=== PATIENT | male | born 1955 | race Caucasian/White ===

== ENCOUNTER 2022-07-10 14:07 | Emergency (ER) | payer MEDICARE, SELFPAY ==
[2022-07-10 14:19] VITALS: BP 148/87; PULSE 58; RESP 14; TEMP 36.6; O2SAT 98; BMI 25.8
--- NOTE | 2022-07-10 14:25 | DI.CT.S_ITS ---
PROCEDURE: CT KIDNEY URETER BLADDER (KUB) INDICATIONS: L flank pain. Hx kidney stones TECHNIQUE: Axial sections were acquired from the lung bases to the pubic symphysis. Coronal and sagittal reformats were performed. For radiation dose reduction, the following was used: automated exposure control, adjustment of mA and/or kV according to patient size. COMPARISON: None. FINDINGS: Image quality: Excellent. Lung bases: Unremarkable. Heart: No significant findings. URINARY: Right Kidney: 2-3 mm nonobstructing stones are seen scattered in right renal parenchyma. No hydronephrosis. No perinephric fat stranding. Right Ureter: No hydroureter. Left Kidney: There is moderate left-sided hydronephrosis and mild left perinephric fat stranding. 1-2 mm nonobstructing left renal calculi are seen. Left Ureter: Ucql-od-ygyehrzh left-sided hydroureter is seen extending to the level just proximal to left UVJ. A 3 mm stone is seen in distal left ureter just proximal to left UVJ. Bladder: Normal wall thickness. No stones. Enlarged prostate gland with mass effect on floor of urinary bladder is seen. ABDOMEN: Liver: Unremarkable. Gallbladder: Unremarkable. Biliary ducts: Unremarkable. Pancreas: Unremarkable. Spleen: Unremarkable. Adrenal Glands: Unremarkable. Stomach and Bowel: Stomach, small bowel loops, and colon are unremarkable. Mild fecal stasis in the colon is seen. Peritoneum: No abnormal intraperitoneal fluid. No free air. Ventral Wall: No hernia. Abdominal Nodes: No enlarged retroperitoneal or mesenteric lymph nodes. Vessels: Aorta and inferior vena cava are normal in size. PELVIS: Pelvic Organs: Unremarkable. Pelvic Nodes: Unremarkable. Miscellaneous: Bilateral inguinal hernia are seen containing fat only. Bones: No suspicious bony lesion. No acute vertebral body compression fracture. Degenerative disc disease throughout lower thoracic and lumbar spine is seen. IMPRESSION: 1. 3 mm left distal ureteral stone just proximal to left UVJ with mild to moderate left-sided hydronephrosis and hydroureter. 2. Bilateral nonobstructing renal calculi. No right-sided hydronephrosis or hydroureter. No gross abnormality is seen in partially distended urinary bladder. Enlarged prostate gland with mass effect on floor of urinary bladder. 3. No bowel obstruction or abnormal bowel wall thickening. No free fluid or free air. 4. Bilateral inguinal hernia containing fat only. Dictated by: Renato Carnes M.D. on 07/10/2022 at 15:15 Approved by: Renato Carnes M.D. on 07/10/2022 at 15:18
[2022-07-10] MEDS: KETOROLAC 30 MG/ML VIAL 15 MG IV (15:04)
[2022-07-10 15:06] LABS: Add Manual Diff / Slide Review NO; Basophils Absolute Auto 100 /uL (0-100); Eosinophils Absolute Auto 300 /uL (0-450); Eosinophils Percent Auto 3.5 % (2-4); Hematocrit 43.7 % (41-53); Hemoglobin 14.6 g/dL (13.5-17.5); Lymphocytes Absolute Auto 1800 /uL (1100-4500); Lymphocytes Percent Auto 24.5 % (25-40); Mean Corpuscular HGB Conc 33.5 % (30-36); Mean Corpuscular Hemoglobin 29.2 PG (26-34); Mean Corpuscular Volume 87.1 fL (80-100); Monocytes Absolute Auto 700 /uL (0-900); Monocytes Percent Auto 9.2 % (3-14); Neutrophils Absolute Auto 4500 /uL (1500-7000); Neutrophils Percent Auto 61.8 % (50-75); Platelet Count 186 X10^3/uL (150-400); Red Blood Cell Count 5.02 X10^6/uL (4.5-5.9); Red Cell Distribution Width 12.8 % (11.6-14.8); White Blood Cell Count 7.3 X10^3/uL (4.5-11.0)
--- NOTE | 2022-07-10 15:10 | ED.MALEGU ---
HPI - Male Genitourinary General Chief complaint: Urogenital-Male Stated complaint: Pain lower back/hx of kidney stones Time Seen by Provider: 07/10/22 15:04 Source: patient Mode of arrival: Ambulatory History of Present Illness HPI Narrative: Patient is a 67-year-old male with history of hyperlipidemia, kidney stones presenting with left-sided flank pain. He said it started abruptly this morning around 6:00 a.m.. It is radiating around to his abdomen. He says this feels similar to his previous kidney stone. He denies painful or frequent urination. He took ibuprofen early this morning. He has some chronic ongoing back pain which seems unrelated he says today was definitely left flank pain. Related Data Home Medications Medication Instructions Recorded Confirmed rosuvastatin 40 mg tablet 40 mg PO DAILY 06/13/22 06/13/22 sertraline 100 mg tablet (Zoloft) 100 mg PO DAILY 06/13/22 06/13/22 Previous Rx's Medication Instructions Recorded hydrocodone 5 mg-acetaminophen 325 1 tab PO Q6H PRN pain #10 tabs 07/10/22 mg tablet Allergies Allergy/AdvReac Type Severity Reaction Status Date / Time No Known Drug Allergies Allergy Verified 07/10/22 14:23 Review of Systems Review of Systems Narrative: GENERAL: Denies chills,fever HEENT: Denies throat pain RESPIRATORY: Denies dyspnea, cough, wheezing CARDIOVASCULAR: Denies chest pain, palpitations GASTROINTESTINAL: Denies nausea, vomiting : See HPI MUSCULOSKELETAL: Denies extremity pain, injury SKIN: No rash, no laceration, no pruritus NEUROLOGIC: Denies weakness, dizziness, headache, numbness 8 point review of systems is negative except for those stated above and HPI Patient History Social History Smoking Status: Never smoker Smoking Status: Never smoker alcohol intake frequency: a few times a month Substance Use Type: marijuana Exam Initial Vital Signs Initial Vital Signs: Vital Signs Temperature 97.9 F 07/10/22 14:19 Pulse Rate 58 L 07/10/22 14:19 Respiratory Rate 14 07/10/22 14:19 Blood Pressure 148/87 H 07/10/22 14:19 Pulse Oximetry 98 07/10/22 14:19 Oxygen Delivery Method 07/10/22 14:19 GENERAL: Alert pleasant 67-year-old male mom and in no acute distress. HEENT: Head atraumatic,EOMI, pupils reactive, face symmetric, moist mucous membranes CARDIOVASCULAR: Regular rate and rhythm without murmurs, rubs or gallops. RESPIRATORY: Breath sounds equal bilaterally, no wheezes rales or rhonchi. ABDOMEN: Soft, nontender. Normoactive bowel sounds all 4 quadrants. No guarding or rebound. : Left CVA tenderness EXTREMITIES: Normal range of motion, no clubbing or edema. Neurovascularly intact NEUROLOGICAL: Alert and oriented x4.Normal gait and speech. SKIN: Warm, dry, no laceration, no petechiae, no rashes or lesions. Course Orders Ordered: Discontinued Medications Ketorolac Tromethamine (Ketorolac 30 Mg/Ml Vial) 15 mg IV NOW ONE Stop: 07/10/22 15:01 Last Admin: 07/10/22 15:04 Dose: 15 mg Documented By: [place] Vital Signs Vital signs: Vital Signs - 8 hr 07/10/22 14:19 Temperature 97.9 F Pulse Rate 58 L Respiratory Rate 14 Blood Pressure 148/87 H Pulse Oximetry 98 Oxygen Delivery Method Room Air MDM - Male Genitourinary Lab Data Result diagrams: 07/10/22 14:50 07/10/22 14:50 Labs: Lab Results 07/10/22 07/10/22 07/10/22 Range/Units 14:44 14:50 14:50 WBC 7.3 (4.5-11.0) X10^3/uL RBC 5.02 (4.5-5.9) X10^6/uL Hgb 14.6 (13.5-17.5) g/dL Hct 43.7 (41-53) % MCV 87.1 (80-100) fL MCH 29.2 (26-34) PG MCHC 33.5 (30-36) % RDW 12.8 (11.6-14.8) % Plt Count 186 (150-400) X10^3/uL Neut % (Auto) 61.8 (50-75) % Lymph % (Auto) 24.5 L (25-40) % [place] % (Auto) 9.2 (3-14) % Eos % (Auto) 3.5 (2-4) % Baso % (Auto) 1.0 (0-2) % Neut # (Auto) 4500 (1183-4103) /uL Lymph # (Auto) 1800 (7595-4505) /uL [place] # (Auto) 700 (0-900) /uL Eos # (Auto) 300 (0-450) /uL Baso # (Auto) 100 (0-100) /uL Sodium 139 (137-145) mmol/L Potassium 4.3 (3.4-5.1) mmol/L Chloride 104 (98-107) mmol/L Carbon Dioxide 27 (22-32) mmol/L BUN 15 (9-20) mg/dL Creatinine 0.83 (0.66-1.25) mg/dL Estimated GFR > 60 (>60) mL/min BUN/Creatinine Ratio 18.1 (6-22) Glucose 90 (80-110) mg/dL Calcium 9.1 (8.4-10.2) mg/dL Total Bilirubin 1.1 (0.2-1.3) mg/dL AST 30 (17-59) IU/L ALT 28 (<50) IU/L Alkaline Phosphatase 71 (38-126) U/L Total Protein 7.6 (6.3-8.2) g/dL Albumin 4.6 (3.5-5.0) g/dL Globulin 3.0 (1.7-4.1) g/dL Albumin/Globulin Ratio 1.5 (1.0-2.8) Urine RBC 5-10/hpf H (0-5/HPF) Urine WBC 0-1/hpf (0-5/HPF) Urine Bacteria None seen (None) Ur Culture Indicated? Cult not indicated Urine Dip Bedside Urine Glucose Negative Bedside Urine Bilirubin - Negative Bedside Urine Ketone - Negative Urine Specific [place] 1.015 Bedside Urine Occult Blood +++ Bedside Urine pH 6 Bedside Urine Protein - Negative Bedside Urine Urobilinogen - Negative Bedside Urine Nitrite - Negative Bedside Urine Leukocytes - Negative Esterase Imaging Data CT scan - abdomen/pelvis: Radiologist's Impression: CT Scan Report Signed Patient: Justus Tariq MR#: [id number] : 1955 Acct:[id number] Age/Sex: 67 / M Date of Service: 07/10/22 Loc: ED Accession Number: [id number] ?? Procedure: CT kidney ureter bladder (KUB) Ordering Provider: Viviane Simpson D.O. PROCEDURE:? CT KIDNEY URETER BLADDER (KUB) ? INDICATIONS:? L flank pain. Hx kidney stones ? TECHNIQUE:? Axial sections were acquired from the lung bases to the pubic symphysis.? Coronal and sagittal reformats were performed.? For radiation dose reduction, the following was used: ?automated exposure control, adjustment of mA and/or kV according to patient size.? ? COMPARISON:? None. ? FINDINGS:? Image quality:? Excellent.? ? Lung bases:? Unremarkable.? ? Heart:? No significant findings. ? URINARY: Right Kidney:? 2-3 mm nonobstructing stones are seen scattered in right renal parenchyma. ?No hydronephrosis.? No perinephric fat stranding. Right Ureter:? No hydroureter. ? Left Kidney:? There is moderate left-sided hydronephrosis and mild left perinephric fat stranding.? 1-2 mm nonobstructing left renal calculi are seen. Left Ureter:? [id number] left-sided hydroureter is seen extending to the level just proximal to left UVJ.? A 3 mm stone is seen in distal left ureter just proximal to left UVJ. ? Bladder:? Normal wall thickness. No stones. ? ? Enlarged prostate gland with mass effect on floor of urinary bladder is seen. ? ABDOMEN: Liver:? Unremarkable.? ? Gallbladder:? Unremarkable. Biliary ducts:? Unremarkable.? ? Pancreas:? Unremarkable.? ? Spleen:? Unremarkable.? ? Adrenal Glands:? Unremarkable.? ? ? Stomach and Bowel:? Stomach, small bowel loops, and colon are unremarkable.? Mild fecal stasis in the colon is seen. Peritoneum:? No abnormal intraperitoneal fluid.? No free air.? ? Ventral Wall: ? No hernia.? Abdominal Nodes:? No enlarged retroperitoneal or mesenteric lymph nodes.? Vessels:? Aorta and inferior vena cava are normal in size.? ? PELVIS: Pelvic Organs:? Unremarkable.? ? Pelvic Nodes: Unremarkable. Miscellaneous:? Bilateral inguinal hernia are seen containing fat only. ? Bones:? No suspicious bony lesion.? No acute vertebral body compression fracture.? Degenerative disc disease throughout lower thoracic and lumbar spine is seen. ? IMPRESSION:? ? 1. 3 mm left distal ureteral stone just proximal to left UVJ with mild to moderate left-sided hydronephrosis and hydroureter. 2. Bilateral nonobstructing renal calculi.? No right-sided hydronephrosis or hydroureter. ?No gross abnormality is seen in partially distended urinary bladder.? Enlarged prostate gland with mass effect on floor of urinary bladder. 3. No bowel obstruction or abnormal bowel wall thickening.? No free fluid or free air. 4.? Bilateral inguinal hernia containing fat only. ? ? ? Dictated by: Renato Carnes M.D. on 07/10/2022 at 15:15 ? ? MDM Narrative Medical decision making narrative: Patient is a no symptoms similar to his previous kidney stone. He has got hematuria no sign of infection. Blood work is overall reassuring. CT confirms 3 mm stone at the UVJ. Pain is better controlled after Toradol. Discharge Plan Departure Patient Disposition: Home Clinical Impression: Kidney stone on left side Instructions: DI for Kidney Stones Activity Restrictions/Additional Instructions: *You have been diagnosed with left-sided kidney *What to do: At this time you will likely pass the stone in 24-48 hours. Increase fluids *Continue to take medications as directed Motrin 600 mg every 6 hours if needed for [id number]-[id number] pain [place] 1 tablet every 6 hours if needed for severe pain *Follow up with your primary care provider in 2-3 days or call [phone] May need to follow up with Urology, please see your PCP *Return to ER if you should have increasing pain persistent vomiting, fever [or] any new, worsening or concerning symptoms CONTROLLED SUBSTANCE DISCHARGE (Narcotoic/benzodiazepine/Flexeril/Phenergan) 1. You have been prescribed narcotic medications, it does have acetaminophen/Tylenol/paracetamol in it, DO NOT TAKE MORE THAN 4,00mg in 24 hours of Tylenol. TRAMADOL DOES NOT CONTAIN TYLENOL 2. Please understand that we cannot provide further refills of narcotics, benzodiazepines or controlled substances through the ED and her pain management will need to be through your provider. 3. While on these medications you cannot drive or operate heavy machinery. 4. You cannot sign legal documents or perform any duties such as this. 5. As long as you're taking opiate pain medications he should also be taking a stool softener such as Colace, Dulcolax, MiraLAX or prune juice, to help avoid constipation. Prescriptions: New hydrocodone-acetaminophen 5-325 mg tablet 1 tab PO Q6H PRN (Reason: pain) Qty: 10 0RF No Action sertraline [Zoloft] 100 mg tablet 100 mg PO DAILY rosuvastatin 40 mg tablet 40 mg PO DAILY Referrals: Tejas Jimenez MD [Primary Care Provider] - Visit Report Forms: Patient Portal/API
[2022-07-10 15:19] LABS: Alanine Aminotransferase 28 IU/L (<50); Albumin 4.6 g/dL (3.5-5.0); Albumin Globulin Ratio 1.5 (1.0-2.8); Alkaline Phosphatase 71 U/L (38-126); Aspartate Aminotransferase 30 IU/L (17-59); BUN Creatinine Ratio 18.1 (6-22); Bilirubin Total 1.1 mg/dL (0.2-1.3); Blood Urea Nitrogen 15 mg/dL (9-20); Calcium 9.1 mg/dL (8.4-10.2); Carbon Dioxide 27 mmol/L (22-32); Chloride 104 mmol/L (98-107); Estimated Glomerular Filt Rate > 60 mL/min (>60); Glucose 90 mg/dL (80-110); HEMOLYSIS 26 (0-50); Potassium 4.3 mmol/L (3.4-5.1); Sodium 139 mmol/L (137-145); Total Protein 7.6 g/dL (6.3-8.2)
[2022-07-10 15:23] LABS: Bacteria Urine None Seen; Culture Indicated Urine Cult Not Indicated; RBC Urine 5-10/HPF (0-5/HPF); WBC Urine 0-1/HPF (0-5/HPF)
--- NOTE | 2022-07-10 16:02 | PC.NURSE ---
assessment done by provider
== END 2022-07-10 16:13 | disposition home or self-care (01) ==
PROVIDERS: Nurse Practitioner Critical Care Medicine; Emergency Provider Emergency Medicine; PCP Family Medicine
DX: N13.2 Hydronephrosis with renal and ureteral calculous obstruction (principal)
CPT/HCPCS: 36415; 74176; 80053; 81003; 81015; 85025; 96374; 99284; J1885

== ENCOUNTER → 2023-06-10 10:20 | Outpatient (CLI) | payer MEDICARE, SELFPAY ==
[2023-06-10 20:28] LABS: HEMOLYSIS < 15 (0-50)
[2023-06-10 20:35] LABS: Alanine Aminotransferase 27 IU/L (<50); Albumin 4.2 g/dL (3.5-5.0); Albumin Globulin Ratio 1.4 (1.0-2.8); Alkaline Phosphatase 93 U/L (38-126); Aspartate Aminotransferase 26 IU/L (17-59); BUN Creatinine Ratio 19.3 (6-22); Bilirubin Total 1.2 mg/dL (0.2-1.3); Blood Urea Nitrogen 17 mg/dL (9-20); Calcium 9.2 mg/dL (8.4-10.2); Carbon Dioxide 28 mmol/L (22-32); Chloride 102 mmol/L (98-107); Estimated Glomerular Filt Rate > 60 mL/min (>60); Glucose 104 mg/dL (80-110); Potassium 4.7 mmol/L (3.4-5.1); Sodium 137 mmol/L (137-145); Total Protein 7.2 g/dL (6.3-8.2)
[2023-06-10 20:39] LABS: Add Manual Diff / Slide Review NO; Basophils Absolute Auto 100 /uL (0-100); Basophils Percent Auto 1.1 % (0-2); Eosinophils Absolute Auto 300 /uL (0-450); Eosinophils Percent Auto 4.8 % (2-4); Hematocrit 44.8 % (41-53); Hemoglobin 15.2 g/dL (13.5-17.5); Lymphocytes Absolute Auto 1400 /uL (1100-4500); Lymphocytes Percent Auto 19.6 % (25-40); Mean Corpuscular Hemoglobin 29.7 PG (26-34); Mean Corpuscular Volume 87.3 fL (80-100); Monocytes Absolute Auto 600 /uL (0-900); Monocytes Percent Auto 8.3 % (3-14); Neutrophils Absolute Auto 4600 /uL (1500-7000); Neutrophils Percent Auto 66.2 % (50-75); Platelet Count 180 X10^3/uL (150-400); Red Blood Cell Count 5.13 X10^6/uL (4.5-5.9); Red Cell Distribution Width 13.1 % (11.6-14.8); White Blood Cell Count 6.9 X10^3/uL (4.5-11.0)
[2023-06-10 20:44] LABS: Cholesterol 149 mg/dL (140-199); HDL Cholesterol 43 mg/dL (40-60); LDL Cholesterol Calculated 84 mg/dL (<100); Triglycerides 112 mg/dL (35-150)
[2023-06-10 21:06] LABS: TSH w/ Reflex to FT4 0.93 uIU/mL (0.47-4.68)
[2023-06-11 01:41] LABS: Vitamin B12 359 pg/mL (239-931)
[2023-06-11 21:35] LABS: Labcorp Hemoglobin (Hb) A1c 5.8 % (4.8-5.6)
== END ==
PROVIDERS: PCP Physician Assistant
DX: Z00.00 Encounter for general adult medical examination without abnormal findings (principal); M54.50 Low back pain, unspecified; M79.606 Pain in leg, unspecified
CPT/HCPCS: 80053; 80061; 82607; 83036; 84443; 85025

== ENCOUNTER → 2024-09-08 13:04 | Outpatient (CLI) | payer MEDICARE, SELFPAY ==
[2024-09-08 19:23] LABS: Hemoglobin A1C% w Est Avg Glu 5.8 % (4.0-6.0)
[2024-09-08 19:26] LABS: Alanine Aminotransferase 36 IU/L (<50); Albumin 4.4 g/dL (3.5-5.0); Albumin Globulin Ratio 1.7 (1.0-2.8); Alkaline Phosphatase 80 U/L (38-126); Aspartate Aminotransferase 28 IU/L (17-59); BUN Creatinine Ratio 20.2 (6-22); Bilirubin Total 1.1 mg/dL (0.2-1.3); Blood Urea Nitrogen 17 mg/dL (9-20); Calcium 9.9 mg/dL (8.4-10.2); Carbon Dioxide 25 mmol/L (22-32); Chloride 105 mmol/L (98-107); Estimated Glomerular Filt Rate > 60 mL/min (>60); Globulin 2.6 g/dL (1.7-4.1); Glucose 95 mg/dL (80-110); HEMOLYSIS < 15 (0-50); Potassium 4.9 mmol/L (3.4-5.1); Sodium 138 mmol/L (137-145)
[2024-09-08 19:37] LABS: LDL Cholesterol Direct 90 mg/dL (<100)
[2024-09-08 19:43] LABS: Thyroid Stimulating Hormone 1.03 uIU/mL (0.47-4.68)
[2024-09-08 19:50] LABS: Prostate Specific Antigen Scrn 3.53 ng/mL (0.1-4.0)
== END ==
PROVIDERS: PCP Family Medicine; Visit Provider Family Medicine
DX: E78.2 Mixed hyperlipidemia (principal); R73.09 Other abnormal glucose; Z12.5 Encounter for screening for malignant neoplasm of prostate; R03.0 Elevated blood-pressure reading, without diagnosis of hypertension; H91.90 Unspecified hearing loss, unspecified ear
CPT/HCPCS: 80053; 83036; 83721; 84443; G0103

== ENCOUNTER → 2025-09-01 13:46 | Outpatient (CLI) | payer MEDICARE, SELFPAY ==
[2025-09-01 18:57] LABS: Hematocrit 44.1 % (41-53); Hemoglobin 14.8 g/dL (13.5-17.5); Mean Corpuscular HGB Conc 33.5 % (30-36); Mean Corpuscular Hemoglobin 29.5 PG (26-34); Mean Corpuscular Volume 88.1 fL (80-100); Platelet Count 202 X10^3/uL (150-400)
[2025-09-01 19:26] LABS: Alanine Aminotransferase 25 IU/L (<50); Albumin 4.4 g/dL (3.5-5.0); Albumin Globulin Ratio 1.6 (1.0-2.8); Alkaline Phosphatase 79 U/L (38-126); Blood Urea Nitrogen 15 mg/dL (9-20); Calcium 9.7 mg/dL (8.4-10.2); Carbon Dioxide 21 mmol/L (22-32); Chloride 105 mmol/L (98-107); Cholesterol 143 mg/dL (140-199); Estimated Glomerular Filt Rate > 60 mL/min (>60); Globulin 2.8 g/dL (1.7-4.1); Glucose 104 mg/dL (70-99); HDL Cholesterol 44 mg/dL (40-60); HEMOLYSIS < 15 (0-50); Potassium 4.4 mmol/L (3.4-5.1); Sodium 136 mmol/L (137-145); Total Protein 7.2 g/dL (6.3-8.2); Triglycerides 161 mg/dL (35-150)
[2025-09-01 19:37] LABS: Hemoglobin A1C% w Est Avg Glu 5.6 % (4.0-6.0)
== END ==
PROVIDERS: PCP Family Medicine; Visit Provider Family Medicine
DX: R03.0 Elevated blood-pressure reading, without diagnosis of hypertension (principal); Z12.5 Encounter for screening for malignant neoplasm of prostate; E78.2 Mixed hyperlipidemia; R73.09 Other abnormal glucose
CPT/HCPCS: 80053; 80061; 83036; 85027; G0103